=== PATIENT | female | born 1950 | race Hispanic/Latino ===

== ENCOUNTER → 2021-03-05 | Outpatient (CLI) | payer BC | END | disposition home or self-care (01) | LOC: RAH 11:18 | PROVIDERS: ATTEND Urology | DX: N13.2 Hydronephrosis with renal and ureteral calculous obstruction (principal); N28.1 Cyst of kidney, acquired; N32.89 Other specified disorders of bladder | CPT/HCPCS: 76770 ==

== ENCOUNTER 2021-04-06 07:23 | Day surgery (SDC) | payer BC ==
[2021-04-04 13:55] LABS: BASOPHILS % (AUTO) 0.3 % (0.0-5.0); EOSINOPHILS % (AUTO) 1.6 % (0.0-8.0); HEMATOCRIT 40.4 % (36-48); LYMPHOCYTES % (AUTO) 17.6 % (21.0-51.0); MEAN CORPUSCULAR HEMOGLOBIN 30.3 pg (27.0-33.0); MEAN CORPUSCULAR HGB CONC 32.4 g/dL (32.0-36.0); MEAN CORPUSCULAR VOLUME 93.3 fL (79-99); MONOCYTES % (AUTO) 4.1 % (3.0-13.0); PLATELET COUNT (AUTO) 317 K/uL (130-400); RED BLOOD CELL COUNT(AUTO) 4.33 MIL/uL (4.00-5.50); RED CELL DISTRIBUTION WIDTH 13.2 % (11.0-15.5); WHITE BLOOD COUNT (AUTO) 7.9 K/uL (4.8-10.8)
[2021-04-04 14:13] LABS: CREATININE 0.9 mg/dL (0.5-1.5); POTASSIUM 4.6 mmol/L (3.5-5.1)
[2021-04-05 11:01] VITALS: BP 172/68
[2021-04-06] VITALS (17 sets, daily range): BP systolic 128–164; BP diastolic 58–100
[~2021-04-06] VITALS: Ht 153.7 cm; Wt 76.5 kg
[~2021-04-06 07:23] MED LIST: CHOL500051 PO; MELO-106 PO; NITR100C PO; RISE150T PO; VITA-164 PO; fish oil PO
[2021-04-06] MEDS ORDERED: LACTATED RINGERS 1000ML 1,000 ML IV ONE (08:05)
[2021-04-06] MEDS ORDERED: IOHEXOL-350 50ML VIAL IV ONE (08:12)
[2021-04-06] MEDS: GENTAMICIN 80 MG/NS 100 ML PB 100 ML IV SCH ×2 (08:25→10:05)
[2021-04-06] MEDS ORDERED: PROPOFOL 10 MG/ML 20ML VIAL IV ONE (09:34)
[2021-04-06] MEDS ORDERED: SUCCINYLCHOLINE 200MG/10ML SYR ONE (09:34)
[2021-04-06] MEDS ORDERED: LIDOCAINE PF 100MG/5ML (2%) SYRINGE 5ML ONE (09:34)
[2021-04-06] MEDS ORDERED: FENTANYL CITRATE PF 50 MCG/1 ML 2ML VIAL ONE (09:35)
[2021-04-06] MEDS ORDERED: GLYCOPYRROLATE 1 MG/5 ML SYRINGE ONE (10:31)
[2021-04-06] MEDS ORDERED: 0.9%NACL 10ML VIAL ONE (10:34)
[2021-04-06] MEDS ORDERED: PHENYLEPHRINE HCL 10 MG/ML 1ML VIAL IV ONE (10:34)
[2021-04-06] MEDS ORDERED: MEPERIDINE-PF 25 MG/ML SYG ONE (11:24)
[2021-04-06] MEDS ORDERED: PHENAZOPYRIDINE HCL 200 MG TABLET ONE (12:03)
== END 2021-04-06 12:45 | disposition home or self-care (01) ==
LOC: DAH 07:23
PROVIDERS: ATTEND Urology
DX: N13.2 Hydronephrosis with renal and ureteral calculous obstruction (principal); Z20.822 Contact with and (suspected) exposure to COVID-19; N30.80 Other cystitis without hematuria; N13.1 Hydronephrosis with ureteral stricture, not elsewhere classified; Z88.8 Allergy status to other drugs, medicaments and biological substances; Z90.49 Acquired absence of other specified parts of digestive tract; Z88.0 Allergy status to penicillin; Z80.3 Family history of malignant neoplasm of breast; Z85.3 Personal history of malignant neoplasm of breast
CPT/HCPCS: 36415; 52332; 74018; 80048; 85025; 87077; 87088; 87186; 87635; 93005; A4215; A4216; A4221; A4222; A4223 ×2; A4354; A4358; A4600; A4663; A6260; C1726; C1758; C2617; C9803; J0330; J1580; J2001; J2175; J2370; J2704; J3010; J3490; J7120 ×2; Q9967

== ENCOUNTER 2021-05-04 06:40 | Day surgery (SDC) | payer BC ==
[2021-05-01 11:21] LABS: BASOPHILS % (AUTO) 0.5 % (0.0-5.0); EOSINOPHILS % (AUTO) 3.9 % (0.0-8.0); HEMATOCRIT 39.3 % (36-48); LYMPHOCYTES % (AUTO) 20.3 % (21.0-51.0); MEAN CORPUSCULAR HEMOGLOBIN 30.5 pg (27.0-33.0); MEAN CORPUSCULAR HGB CONC 32.3 g/dL (32.0-36.0); MEAN CORPUSCULAR VOLUME 94.2 fL (79-99); MONOCYTES % (AUTO) 7.6 % (3.0-13.0); NEUTROPHILS % (AUTO) 67.5 % (40.0-77.0); PLATELET COUNT (AUTO) 245 K/uL (130-400); RED BLOOD CELL COUNT(AUTO) 4.17 MIL/uL (4.00-5.50); RED CELL DISTRIBUTION WIDTH 13.5 % (11.0-15.5); WHITE BLOOD COUNT (AUTO) 6.4 K/uL (4.8-10.8)
[2021-05-01 11:30] LABS: CREATININE 0.9 mg/dL (0.5-1.5); POTASSIUM 4.2 mmol/L (3.5-5.1)
[2021-05-03 12:28] VITALS: BP 139/62
[~2021-05-04] VITALS: Ht 152.4 cm; Wt 77.4 kg
[2021-05-04] VITALS (17 sets, daily range): BP systolic 106–159; BP diastolic 48–89
[~2021-05-04 06:40] MED LIST changes: -NITR100C PO; +OMEG-108 PO; +OXYB-66 PO; -fish oil PO
[2021-05-04] MEDS ORDERED: LACTATED RINGERS 1000ML 1,000 ML IV ONE (07:25)
[2021-05-04] MEDS ORDERED: SCOPOLAMINE HYDROBROMIDE 1 EACH ADH..PATCH TD ONE (07:27)
[2021-05-04] MEDS ORDERED: IOHEXOL-350 50ML VIAL IV ONE (07:38)
[2021-05-04] MEDS ORDERED: SUCCINYLCHOLINE 200MG/10ML SYR ONE (07:51)
[2021-05-04] MEDS ORDERED: DEXAMETHASONE SOD PHOSPHATE 10MG/ML 1ML VIAL ONE (07:51)
[2021-05-04] MEDS ORDERED: LIDOCAINE PF 100MG/5ML (2%) SYRINGE 5ML ONE ×2 (07:51→09:24)
[2021-05-04] MEDS ORDERED: PROPOFOL 10 MG/ML 20ML VIAL IV ONE (07:51)
[2021-05-04] MEDS ORDERED: ONDANSETRON 4MG INJ ONE (07:51)
[2021-05-04] MEDS ORDERED: FENTANYL CITRATE PF 50 MCG/1 ML 2ML VIAL ONE (07:51)
[2021-05-04] MEDS ORDERED: NEOSTIGMINE 5MG/5ML SYR IV ONE (07:51)
[2021-05-04] MEDS ORDERED: ROCURONIUM 10MG/1ML SYR 10 MG/ML ML ONE (07:51)
[2021-05-04] MEDS ORDERED: MIDAZOLAM HCL 1 MG/ML 2ML VIAL ONE (07:51)
[2021-05-04] MEDS ORDERED: GLYCOPYRROLATE 1 MG/5 ML SYRINGE ONE (07:51)
[2021-05-04] MEDS ORDERED: MEPERIDINE-PF 25 MG/ML SYG ONE (07:58)
[2021-05-04] MEDS ORDERED: GENTAMICIN 80 MG/NS 100 ML PB 100 ML IV SCH (08:00)
[2021-05-04] MEDS ORDERED: PHENAZOPYRIDINE HCL 200 MG TABLET ONE (10:34)
== END 2021-05-04 11:15 | disposition home or self-care (01) ==
LOC: DAH 06:40
PROVIDERS: ATTEND Urology
DX: N13.2 Hydronephrosis with renal and ureteral calculous obstruction (principal); Z20.822 Contact with and (suspected) exposure to COVID-19; M19.90 Unspecified osteoarthritis, unspecified site; M81.0 Age-related osteoporosis without current pathological fracture; Z88.8 Allergy status to other drugs, medicaments and biological substances; Z88.0 Allergy status to penicillin; Z90.49 Acquired absence of other specified parts of digestive tract; Z98.890 Other specified postprocedural states; Z90.11 Acquired absence of right breast and nipple; Z92.21 Personal history of antineoplastic chemotherapy
CPT/HCPCS: 36415 ×2; 52356; 74018; 80048; 82360; 85025; 87635; A4215; A4221; A4222; A4223; A4344; A4358; A4600; A4663; A5113; A6207; A6260; C1758; C2617; C9803; J0330; J1100; J1580; J2001 ×2; J2175; J2250; J2405; J2704; J2710; J3010; J3490; J7120; Q9967

== ENCOUNTER 2022-11-18 13:36 | Inpatient (IN) | payer BC, MEDICARE ==
[~2022-11-18] VITALS: Ht 160 cm; Wt 84.4 kg
[~2022-11-18 13:36] MED LIST changes: -OMEG-108 PO; -VITA-164 PO
[2022-11-18] MEDS ORDERED: VANCOMYCIN PROTOCOL PER PHARMACY IV SCH ×2 (15:00→15:30)
[2022-11-18] MEDS ORDERED: DiphenhydrAMINE HCL 50 MG/ML VIAL IV PRN (15:00)
[2022-11-18] MEDS ORDERED: ACETAMINOPHEN 325 MG TAB PO PRN (15:00)
[2022-11-18 15:30] LABS: BASOPHILS % (AUTO) 0.3 % (0.0-5.0); EOSINOPHILS % (AUTO) 1.6 % (0.0-8.0); LYMPHOCYTES % (AUTO) 19.2 % (21.0-51.0); MEAN CORPUSCULAR HEMOGLOBIN 29.8 pg (27.0-33.0); MEAN CORPUSCULAR HGB CONC 32.5 g/dL (32.0-36.0); MEAN CORPUSCULAR VOLUME 91.8 fL (79-99); MONOCYTES % (AUTO) 10.1 % (3.0-13.0); NEUTROPHILS % (AUTO) 68.5 % (40.0-77.0); PLATELET COUNT (AUTO) 226 K/uL (130-400); RED BLOOD CELL COUNT(AUTO) 3.92 MIL/uL (4.00-5.50); RED CELL DISTRIBUTION WIDTH 13.2 % (11.0-15.5); WHITE BLOOD COUNT (AUTO) 5.7 K/uL (4.8-10.8)
[2022-11-18] MEDS ORDERED: ACETAMINOPHEN WITH CODEINE 1 TAB TAB PO PRN (15:30)
[2022-11-18] MEDS ORDERED: MORPHINE 2 MG SYG IVP PRN (15:30)
[2022-11-18] MEDS ORDERED: ONDANSETRON 4MG INJ IVP PRN (15:30)
[2022-11-18 15:38] LABS: CREATININE 1.1 mg/dL (0.5-1.5); POTASSIUM 3.2 mmol/L (3.5-5.1)
[2022-11-18 15:40] LABS: APPEARANCE,URINE CLEAR (CLEAR); BILIRUBIN,URINE NEGATIVE (NEGATIVE); COLOR,URINE LIGHT-YELLOW (YELLOW); GLUCOSE, URINE (UA) NEGATIVE (NEGATIVE); KETONES,URINE NEGATIVE (NEGATIVE); LEUKOCYTE ESTERASE ,URINE 75 Leu/uL (NEGATIVE); MUCUS,URINE RARE LPF (None Seen); NITRATE,URINE NEGATIVE (NEGATIVE); OCCULT BLOOD,URINE LARGE (NEGATIVE); PH,URINE 6.5 (5.0-8.0); PROTEIN,URINE 30 mg/dL (NEGATIVE); RBC,URINE 51-100 /HPF (0-1); SQUAMOUS EPITHELIAL CELL,UR RARE /HPF (0-2); YEAST,URINE BUDDING RARE /HPF (None Seen)
[2022-11-18 15:42] LABS: ALBUMIN 2.6 g/dL (3.5-5.0); TOTAL PROTEIN, SERUM 7.1 g/dL (6.0-8.3)
[2022-11-18] MEDS: 0.9%NACL 1000ML 1,000 ML IV SCH (15:54)
[2022-11-18] MEDS: FAMOTIDINE 20MG TAB PO SCH (15:54)
[2022-11-18] MEDS: MEROPENEM 500 MG VIAL IVP SCH ×2 (15:54→22:56)
[2022-11-18] MEDS ORDERED: POTASSIUM CHLORIDE 20MEQ/100ML 100 ML IV PRN (16:00)
[2022-11-18] MEDS ORDERED: LIDOCAINE HCL-MPF 1% 2ML VIAL IV PRN (16:00)
[2022-11-18] MEDS ORDERED: POTASSIUM CHLORIDE 10% ELIXIR 20 MEQ/15 ML UDCUP PO PRN (16:00)
[2022-11-18] MEDS ORDERED: MAGNESIUM 2GM PREMIX 50ML 50 ML IV PRN (16:00)
[2022-11-18] MEDS ORDERED: PHARMACY COMMUNICATION MISC SCH (16:00)
[2022-11-18] MEDS ORDERED: SULF1TAB42 PO (18:46)
[2022-11-18] MEDS ORDERED: TAMS-1 PO (18:46)
[2022-11-18 18:53] VITALS: BP 134/62
[2022-11-18 20:00] VITALS: BP 141/75
[2022-11-18] MEDS: KCL 20 MEQ ERTAB PO PRN ×2 (20:23→22:56)
[2022-11-19] VITALS: BP 138/75
[2022-11-19] MEDS: KCL 20 MEQ ERTAB PO PRN (00:59)
[2022-11-19 04:00] VITALS: BP 154/78
[2022-11-19 05:22] LABS: HEMATOCRIT 33.7 % (36-48); MEAN CORPUSCULAR HEMOGLOBIN 30.2 pg (27.0-33.0); MEAN CORPUSCULAR HGB CONC 32.9 g/dL (32.0-36.0); MEAN CORPUSCULAR VOLUME 91.6 fL (79-99); RED BLOOD CELL COUNT(AUTO) 3.68 MIL/uL (4.00-5.50); RED CELL DISTRIBUTION WIDTH 13.4 % (11.0-15.5); WHITE BLOOD COUNT (AUTO) 6.6 K/uL (4.8-10.8)
[2022-11-19] MEDS: 0.9%NACL 1000ML 1,000 ML IV SCH ×2 (05:22→20:23)
[2022-11-19] MEDS: ACETAMINOPHEN 325 MG TAB PO PRN (05:28)
[2022-11-19 06:54] LABS: ALBUMIN 2.4 g/dL (3.5-5.0); TOTAL PROTEIN, SERUM 6.3 g/dL (6.0-8.3)
[2022-11-19 07:24] VITALS: BP 141/72
[2022-11-19] MEDS: TAMSULOSIN HCL 0.4 MG CAP.ER.24H PO SCH (09:27)
[2022-11-19] MEDS: FAMOTIDINE 20MG TAB PO SCH (09:27)
[2022-11-19] MEDS: MEROPENEM 500 MG VIAL IVP SCH ×2 (09:27→17:01)
[2022-11-19] MEDS: ENOXAPARIN SODIUM 30 MG/0.3 ML SQ SCH (09:30)
[2022-11-19 11:19] VITALS: BP 142/75
[2022-11-19 15:30] VITALS: BP 144/78
[2022-11-19 20:00] VITALS: BP 146/74
[2022-11-20] VITALS: BP 159/79
[2022-11-20] MEDS: MEROPENEM 500 MG VIAL IVP SCH ×2 (00:27→09:13)
[2022-11-20 04:00] VITALS: BP 149/72
[2022-11-20 04:42] LABS: BASOPHILS % (AUTO) 0.6 % (0.0-5.0); EOSINOPHILS % (AUTO) 2.2 % (0.0-8.0); HEMATOCRIT 33.2 % (36-48); LYMPHOCYTES % (AUTO) 27.2 % (21.0-51.0); MEAN CORPUSCULAR HEMOGLOBIN 30.3 pg (27.0-33.0); MEAN CORPUSCULAR HGB CONC 32.8 g/dL (32.0-36.0); MEAN CORPUSCULAR VOLUME 92.2 fL (79-99); MONOCYTES % (AUTO) 6.7 % (3.0-13.0); NEUTROPHILS % (AUTO) 63.1 % (40.0-77.0); PLATELET COUNT (AUTO) 248 K/uL (130-400); RED CELL DISTRIBUTION WIDTH 13.4 % (11.0-15.5); WHITE BLOOD COUNT (AUTO) 5.4 K/uL (4.8-10.8)
[2022-11-20 05:12] LABS: CREATININE 0.8 mg/dL (0.5-1.5); POTASSIUM 3.7 mmol/L (3.5-5.1)
[2022-11-20] MEDS: ACETAMINOPHEN 325 MG TAB PO PRN (05:44)
[2022-11-20 08:00] VITALS: BP 137/74
[2022-11-20] MEDS: 0.9%NACL 1000ML 1,000 ML IV SCH (09:12)
[2022-11-20] MEDS: FAMOTIDINE 20MG TAB PO SCH (09:13)
[2022-11-20] MEDS: TAMSULOSIN HCL 0.4 MG CAP.ER.24H PO SCH (09:13)
[2022-11-20] MEDS: ENOXAPARIN SODIUM 30 MG/0.3 ML SQ SCH (09:15)
[2022-11-20] MEDS ORDERED: SULF1TAB42 PO (10:44)
[2022-11-20] MEDS: KCL 20 MEQ ERTAB PO PRN (11:27)
== END 2022-11-20 12:15 | disposition home or self-care (01) | DRG 872 ==
LOC: EDH 13:36 → DIRECT 14:16 → 4DH 18:41
PROVIDERS: ADMIT Hospitalist; ATTEND Hospitalist
DX: A41.50 Gram-negative sepsis, unspecified (principal); N13.6 Pyonephrosis; B96.20 Unspecified Escherichia coli [E. coli] as the cause of diseases classified elsewhere; E66.9 Obesity, unspecified; Z79.899 Other long term (current) drug therapy; Z85.3 Personal history of malignant neoplasm of breast; Z87.442 Personal history of urinary calculi; Z90.12 Acquired absence of left breast and nipple; Z90.49 Acquired absence of other specified parts of digestive tract; Z88.0 Allergy status to penicillin; Z88.5 Allergy status to narcotic agent; Z68.32 Body mass index [BMI] 32.0-32.9, adult; Z88.1 Allergy status to other antibiotic agents
CPT/HCPCS: 36415; 74176; 80048; 80053; 81001; 85025; 85027; 87040; 87088; G0378; J1650; J2185